=== PATIENT | female | born 1970 | race Caucasian/White ===

== ENCOUNTER → 2016-09-29 | Outpatient (CLI) | payer BC ==
--- NOTE | 2016-09-29 11:53 | ECHOF ---
Referral Reason:R07.9 chest pain R00.2 palpitations MEASUREMENTS -------- HEIGHT: 165.1 cm WEIGHT: 66.2 kg BP: 110/60 RVIDd: 2.3 cm (< 3.3) IVSd: 0.8 cm (0.6 - 1.1) LVIDd: 4.2 cm (3.9 - 5.3) LVPWd: 1.0 cm (0.6 - 1.1) IVSs: 1.1 cm LVIDs: 2.4 cm LVPWs: 1.0 cm LA Diam: 2.8 cm (2.7 - 3.8) Ao Diam: 3.0 cm (2.0 - 3.7) AV Cusp: 2.0 cm (1.5 - 2.6) LA Diam: 2.9 cm (2.7 - 3.8) MV EXCURSION: 23.991 mm (> 18.000) MV EF SLOPE: 104 mm/s (70 - 150) EPSS: 0.2 cm MV E Ramin: 0.66 m/s MV DecT: 218 ms MV A Ramin: 0.92 m/s MV E/A Ratio: 0.71 RAP: 5.00 mmHg RVSP: 18.40 mmHg FINDINGS -------- Sinus rhythm. This was a technically good study. LV size, wall thickness and systolic function are normal, with an EF greater than 55%. The right ventricle is normal in size. The left atrial size is normal. The right atrial size is normal. The aortic valve is trileaflet, and appears structurally normal. No aortic stenosis or regurgitation. Mild mitral annular calcification present. Mild mitral regurgitation is present. Mild tricuspid regurgitation present. There is no evidence of pulmonary hypertension. The right ventricular systolic pressure, as measured by Doppler, is 18.40mmHg. There is no pulmonic regurgitation present. The aortic root size is normal. There is no pericardial effusion. CONCLUSIONS -------- 1. LV size, wall thickness and systolic function are normal, with an EF greater than 55%. 2. Mild mitral annular calcification present. 3. Mild mitral regurgitation is present. 4. Mild tricuspid regurgitation present. 5. There is no evidence of pulmonary hypertension. 6. The right ventricular systolic pressure, as measured by Doppler, is 18.40mmHg. OPTICAL DISPENSER: Sarah Mejia RDCS
--- NOTE | 2016-10-01 11:06 | EST ---
DATE OF SERVICE: 09/29/2016 AGE: 46Y SEX: F HT: 65" WT: 146 lbs. Protocol Mitchell: X Other: Stress Stage: IV Dur. of Exercise: 10:00 *Heart Rate Blood Pressure *Rest: 119 Rest: 142/49 * *Max. Achieved: 181 Maximum BP: 211/50 85% PMHR: 148 100% PMHR: 174 *METS: 11.0 INDICATIONS: Chest pain, palpitations. MEDICATIONS: [place]. Baseline EKG shows sinus rhythm, normal axis, normal intervals. Patient exercised on Mitchell protocol for a total of 10 minutes achieving 11 METs, 100% of predicted maximum heart rate without chest pain or diagnostic ST segment depression. CONCLUSION: 1. Excellent exercise tolerance. 2. Negative stress test by EKG criteria.
== END | disposition home or self-care (01) ==
LOC: RADNMMAIN 10:18
PROVIDERS: ATTEND Family Medicine
DX: R07.9 Chest pain, unspecified (principal); R00.2 Palpitations
CPT/HCPCS: 93017; 93225; 93226; 93306

== ENCOUNTER → 2016-10-15 | Outpatient (CLI) | payer BC ==
--- NOTE | 2016-10-15 17:55 | XR ---
EXAMINATION TYPE: XR chest 2V DATE OF EXAM: 10/15/2016 5:33 PM COMPARISON: NONE HISTORY: Chest pain TECHNIQUE: Frontal and lateral views of the chest are obtained. FINDINGS: Heart and mediastinum are normal. Lungs are clear. Diaphragm is normal. There is a mild th oracic kyphotic curvature. I see no compression fracture. There is no pleural effusion. IMPRESSION: No active cardiopulmonary disease.
== END ==
LOC: RADXRMAIN 17:23
PROVIDERS: ATTEND Family Medicine
DX: R07.9 Chest pain, unspecified (principal)
CPT/HCPCS: 71020

== ENCOUNTER → 2016-12-03 | Outpatient (CLI) | payer BC ==
--- NOTE | 2016-12-04 15:49 | MM ---
Reason for exam: screening (asymptomatic). Last mammogram was performed 6 months ago. History: Patient is postmenopausal. Taking hormonal contraceptives for 2 years. Physical Findings: A clinical breast exam by your physician is recommended on an annual basis and results should be correlated with mammographic findings. MG 3D Screening Mammo W/Cad Bilateral CC and MLO view(s) were taken. Prior study comparison: May 21, 2016, left breast MG diagnostic mammo LT w CAD. October 29, 2015, bilateral MG 3d screening mammo w/cad. The breast tissue is heterogeneously dense. This may lower the sensitivity of mammography. No significant changes when compared with prior studies. ASSESSMENT: Benign, BI-RAD 2 RECOMMENDATION: Routine screening mammogram of both breasts in 1 year.
== END | disposition home or self-care (01) ==
LOC: RADMAMWWP 16:24
PROVIDERS: ATTEND Obstetrics & Gynecology
DX: Z12.31 Encounter for screening mammogram for malignant neoplasm of breast (principal)
CPT/HCPCS: 77063; G0202

== ENCOUNTER → 2017-02-23 | Outpatient (CLI) | payer BC ==
--- NOTE | 2017-02-23 15:32 | BD ---
EXAMINATION TYPE: MG DEXA axial skeleton. DATE OF EXAM: 02/23/2017 COMPARISON: NONE CLINICAL HISTORY: osteoporosis Height: 5'5 Weight: 140 FRAX RISK QUESTIONS: Alcohol (3 or more units per day): no Family History (Parent hip fracture): no Glucocorticoids (More than 3mos): no (Ex: prednisone, prednisolone, methylprednisolone, dexamethasone, and hydrocortisone). History of Fracture in Adulthood: no Secondary Osteoporosis: 1. Type 1 Diabetes: no 2. Hyperthyroidism: no 3. Menopause before 45: yes 4. Malnutrition: no 5. Chronic liver disease: no Rheumatoid Arthritis: no Current Tobacco Use: no RISK FACTORS HISTORY OF: Family History of Osteoporosis: Diet low in dairy products/other sources of calcium: Postmenopausal woman: Take estrogen and/or progesterone medications: How lon years MEDICATIONS: Additional Medications: Claritin, flonase , Additional History: osteoporosis EXAM MEASUREMENTS: Bone mineral densitometry was performed using the [employer] System. Bone mineral density as measured about the Lumbar spine is: ----- L1-L4(G/cm2): 0.916 T Score Values are as follows: ----- L2: -1.9 ----- L3: -2.1 ----- L4: -3.1 ----- L1-L4: -2.2 Bone mineral density about the R hip (g/cm2): 0.993 Bone mineral density about the L hip (g/cm2): 0.950 T Score values are as follows: -----R Neck: -0.3 -----L Neck: -0.6 -----R Total: 0.0 -----L Total: 0.3 IMPRESSION: Osteoporosis (T Score less than -2.5) as noted by T Score values at the: L4 There is increased fracture risk and therapy is usually indicated based on age. Re-Screen 1-2 years. NOTE: T-SCORE=SD OF THE YOUNG ADULT MEAN.
== END | disposition home or self-care (01) ==
LOC: RADBDWWP 14:52
PROVIDERS: ATTEND Family Medicine
DX: M81.0 Age-related osteoporosis without current pathological fracture (principal)
CPT/HCPCS: 77080

== ENCOUNTER → 2017-05-18 | Outpatient (CLI) | payer BC ==
--- NOTE | 2017-05-19 07:38 | USB ---
Reason for exam: clinical finding. History: Patient is postmenopausal. Taking hormonal contraceptives for 2 years. Indicated problem(s): pain in the right breast. Physical Findings: Nurse did not find any significant physical abnormalities on exam. US Breast RT Technologist: Emily Nowak Right breast ultrasound includes all four quadrants, the retroareolar region and axilla. Finding demonstrates no cystic or solid lesion seen. These results were verbally communicated with the patient and result sheet given to the patient on 05/18/17. ASSESSMENT: Negative, BI-RAD 1 RECOMMENDATION: Return to routine screening mammogram schedule for both breasts. Back on schedule. Manage patient on a clinical basis.
== END | disposition home or self-care (01) ==
LOC: RADUSWWP 14:42
PROVIDERS: ATTEND Obstetrics & Gynecology
DX: N64.4 Mastodynia (principal)

== ENCOUNTER 2018-05-16 13:40 | Emergency (ER) | payer OTHER ==
[2018-05-16] MEDS ORDERED: IBUPROFEN 600 MG TAB PO STA (14:01)
--- NOTE | 2018-05-16 14:54 | ED ---
General Adult HPI - General Chief complaint: Fall Stated complaint: fall Time Seen by Provider: 05/16/18 13:52 Source: patient, RN notes reviewed, old records reviewed Mode of arrival: ambulatory Limitations: no limitations - History of Present Illness Initial comments: 47-year-old female presents with right arm pain and tailbone pain status post fall. She was at work, cleaning up water spill, fell on her tailbone. She states that pain is significantly worse with sitting. She is also noted some bruising and pain in her right upper arm associated with the fall. There is no head or neck trauma. Denies loss consciousness. Patient is otherwise healthy with no complaints. She does report some mild low back pain but her pain is predominantly in her tailbone. No shooting pain in the lower extremities. No pain with ambulation. - Related Data Home Medications Medication Instructions Recorded Confirmed Loratadine [Claritin] 10 mg PO DAILY 05/16/18 05/16/18 Previous Rx's Medication Instructions Recorded Ibuprofen [Motrin] 600 mg PO Q8HR PRN #24 tab 05/16/18 Allergies Allergy/AdvReac Type Severity Reaction Status Date / Time No Known Allergies Allergy Verified 05/16/18 14:01 Review of Systems ROS Statement: Those systems with pertinent positive or pertinent negative responses have been documented in the HPI. ROS Other: All systems not noted in ROS Statement are negative. Past Medical History Past Medical History: No Reported History History of Any Multi-Drug Resistant Organisms: None Reported Past Surgical History: Hysterectomy Past Psychological History: No Psychological Hx Reported Smoking Status: Never smoker Past Alcohol Use History: None Reported Past Drug Use History: None Reported General Exam Limitations: no limitations General appearance: alert, in no apparent distress Head exam: Present: atraumatic, normocephalic Eye exam: Present: normal appearance, PERRL, EOMI ENT exam: Present: normal exam, normal oropharynx Neck exam: Present: normal inspection. Absent: tenderness, meningismus Respiratory exam: Present: normal lung sounds bilaterally. Absent: respiratory distress, wheezes Cardiovascular Exam: Present: regular rate, normal rhythm GI/Abdominal exam: Present: soft. Absent: distended, tenderness Extremities exam: Present: tenderness (Tenderness over the mid humerus with some ecchymosis, normal range of motion at the elbow, normal range of motion at the shoulder, normal back end developer strength, 2+ radial pulse.) Back exam: Present: normal inspection, tenderness (Mild paraspinal lumbar tenderness, tenderness over the sacrum.) Neurological exam: Present: alert, oriented X3, CN II-XII intact. Absent: motor sensory deficit Psychiatric exam: Present: normal affect, normal mood Skin exam: Present: warm, dry, intact. Absent: cyanosis, diaphoretic Course Vital Signs 05/16/18 13:47 Temperature 98 F Pulse Rate 77 Respiratory 16 Rate Blood Pressure 122/77 O2 Sat by Pulse 100 Oximetry Medical Decision Making - Medical Decision Making 47-year-old female presents status post fall with right arm pain and pain over her tailbone. X-rays obtained of the right humerus which is negative for fracture, x-rays of the sacrum and coccyx is negative for fracture x-ray of lumbar spine negative for fracture or dislocation. Patient given Motrin, reevaluation she is feeling somewhat better. She will follow-up with primary care physician. Take anti-inflammatories for pain. Disposition Clinical Impression: Tailbone injury Disposition: HOME SELF-CARE Condition: Good Instructions: Contusion in Adults (ED) Prescriptions: Ibuprofen [Motrin] 600 mg PO Q8HR PRN #24 tab PRN Reason: Pain Is patient prescribed a controlled substance at d/c from ED?: No Referrals: Feliberto Dukes DO [Primary Care Provider] - 1-2 days Time of Disposition: 15:13
--- NOTE | 2018-05-16 15:04 | XR ---
EXAMINATION TYPE: XR humerus RT DATE OF EXAM: 05/16/2018 CLINICAL HISTORY: pain COMPARISON: NONE TECHNIQUE: Frontal and lateral images of the right humerus are obtained. FINDINGS: There is no acute fracture/dislocation evident. The joint spaces appear within normal limi ts. The overlying soft tissue appears unremarkable. IMPRESSION: There is no acute fracture or dislocation.ICD 10 NO FRACTURE, INITIAL EVALUATION
--- NOTE | 2018-05-16 15:07 | XR ---
EXAMINATION TYPE: XR lumbar spine 2 or 3V DATE OF EXAM: 05/16/2018 CLINICAL HISTORY: pain TECHNIQUE: Three views of the lumbar spine are submitted. COMPARISON: None. FINDINGS: There are 5 lumbar type vertebral bodies identified. The lumbar spine shows satisfactory alignment w ithout evidence of acute fracture or dislocation. Vertebral body heights are within normal limits. Mild scattered degenerative disc space narrowing. The overlying soft tissue appears unremarkable. IMPRESSION: No acute fracture or dislocation is seen in the lumbar spine. ICD 10 NO FRACTURE, INITIAL EVALUATION
--- NOTE | 2018-05-16 15:07 | XR ---
EXAMINATION TYPE: XR sacrum coccyx DATE OF EXAM: 05/16/2018 CLINICAL HISTORY: pain TECHNIQUE: Three views of the sacrum and coccyx are submitted. COMPARISON: None Sacral alae appear symmetric. No evidence for fracture or bony lesion. Sacroiliac joints are within normal limits. Visualized coccygeal segments are free of fracture or lesion. IMPRESSION: Normal study
[2018-05-16 15:26] VITALS: BP 117/78; PULSE 92; RESP 18; TEMP 98.5
== END 2018-05-16 15:20 | disposition home or self-care (01) ==
LOC: EC 13:40
DX: S39.92XA Unspecified injury of lower back, initial encounter (principal); S40.021A Contusion of right upper arm, initial encounter; Z90.710 Acquired absence of both cervix and uterus; Z79.899 Other long term (current) drug therapy; W01.0XXA Fall on same level from slipping, tripping and stumbling without subsequent striking against object, initial encounter; Y92.69 Other specified industrial and construction area as the place of occurrence of the external cause; Y99.0 Civilian activity done for income or pay
CPT/HCPCS: 72100; 72220; 99284

== ENCOUNTER → 2018-05-31 | Outpatient (CLI) | payer OTHER ==
--- NOTE | 2018-06-01 10:55 | MM ---
Reason for exam: screening (asymptomatic). Last mammogram was performed 1 year and 6 months ago. History: Patient is postmenopausal. Took hormonal contraceptives for 2 years. Physical Findings: A clinical breast exam by your physician is recommended on an annual basis and results should be correlated with mammographic findings. MG 3D Screening Mammo W/Cad Bilateral CC and MLO view(s) were taken. Prior study comparison: December 03, 2016, bilateral MG 3d screening mammo w/cad. May 21, 2016, left breast MG diagnostic mammo LT w CAD. The breast tissue is heterogeneously dense. This may lower the sensitivity of mammography. No suspicious calcifications are seen. Focal asymmetry central left breast 5.2cm from nipple. This finding is changed when compared with previous exams. ASSESSMENT: Incomplete: need additional imaging evaluation, BI-RAD 0 RECOMMENDATION: Special view mammogram of the left breast. If lesion persists on supplemental views, image directed ultrasound is recommended. [facility] will attempt to contact patient to return for supplemental views and ultrasound if indicated.
== END | disposition home or self-care (01) ==
LOC: RADMAMWWP 15:58
PROVIDERS: ATTEND Obstetrics & Gynecology
DX: Z12.31 Encounter for screening mammogram for malignant neoplasm of breast (principal)
CPT/HCPCS: 77063; 77067

== ENCOUNTER → 2018-06-07 | Outpatient (CLI) | payer OTHER ==
--- NOTE | 2018-06-07 11:21 | MM ---
Reason for exam: additional evaluation requested from abnormal screening. Last mammogram was performed less than 1 month ago. History: Patient is postmenopausal. Took hormonal contraceptives for 2 years. Physical Findings: Nurse did not find any significant physical abnormalities on exam. MG 3D Work Up W/Cad LT Spot compression CC, spot compression MLO, and LM view(s) were taken of the left breast. Prior study comparison: May 31, 2018, bilateral MG 3d screening mammo w/cad. December 03, 2016, bilateral MG 3d screening mammo w/cad. The breast tissue is heterogeneously dense. This may lower the sensitivity of mammography. No significant new findings when compared with previous films. These results were verbally communicated with the patient and result sheet given to the patient on 06/07/18. ASSESSMENT: Incomplete: need additional imaging evaluation, BI-RAD 0 RECOMMENDATION: Ultrasound of the left breast.
--- NOTE | 2018-06-07 11:22 | USB ---
Reason for exam: additional evaluation requested from abnormal screening. History: Patient is postmenopausal. Took hormonal contraceptives for 2 years. US Breast Workup LT Left complete breast ultrasound includes all four quadrants, the retroareolar region and axilla. Finding demonstrates a 0.4 x 0.3 x 0.3cm lesion too small to characterize at 8 o'clock and a 0.4 x 0.3 x 0.3cm lesion too small to characterize at the nipple. These results were verbally communicated with the patient and result sheet given to the patient on 06/07/18. ASSESSMENT: Probably benign, BI-RAD 3 RECOMMENDATION: Follow-up diagnostic mammogram and ultrasound of the left breast in 6 months.
== END | disposition home or self-care (01) ==
LOC: RADMAMWWP 08:21
PROVIDERS: ATTEND Obstetrics & Gynecology
DX: R92.8 Other abnormal and inconclusive findings on diagnostic imaging of breast (principal)
CPT/HCPCS: 77065; 76641; G0279; 77061

== ENCOUNTER → 2019-03-09 | Outpatient (CLI) | payer OTHER ==
--- NOTE | 2019-03-09 11:37 | MM ---
Reason for exam: follow-up at short interval from prior study. Last mammogram was performed 9 months ago. History: Patient is postmenopausal. Took hormonal contraceptives for 2 years. Physical Findings: Nurse Summary: less than 0.5cm nodule in the left breast at 12 o'clock (nurse kp). MG 3D Diag Mammo W/Cad LT Spot compression CC, LM, MLO, and CC view(s) were taken of the left breast. Prior study comparison: June 07, 2018, left breast MG 3d work up w/cad LT. May 31, 2018, bilateral MG 3d screening mammo w/cad. The breast tissue is heterogeneously dense. This may lower the sensitivity of mammography. Left lateral distortion on CC 33/77 located 5cm from nipple. No definitive correlate on MLO as this is very small. Ultrasound is being performed as already ordered on the left on ultrasound only a retroareolar cyst is seen, benign. Spot CC distortion persists, 3D biopsy recommended. These results were verbally communicated with the patient and result sheet given to the patient on 03/09/19. ASSESSMENT: Suspicious, BI-RAD 4 RECOMMENDATION: Stereotactic core biopsy of the left breast. Called Dr. Way with mammographic findings and has scheduled an appointment for the patient for 03/15/19 at 10:[address] Alfredo. PRELIMINARY REPORT CALLED AND FAXED TO DR. ALFREDO ON 03/09/19.
--- NOTE | 2019-03-09 11:39 | USB ---
Reason for exam: follow-up at short interval from prior study. History: Patient is postmenopausal. Took hormonal contraceptives for 2 years. US Breast LT Left complete breast ultrasound includes all four quadrants, the retroareolar region and axilla. Finding demonstrates a 0.4 x 0.4 x 0.3cm cystic cluster at 12 o'clock posterior nipple, benign. No sonographic correlate for the lateral distortion. 3D biopsy recommended. These results were verbally communicated with the patient and result sheet given to the patient on 03/09/19. ASSESSMENT: Suspicious, BI-RAD 4 RECOMMENDATION: Stereotactic core biopsy of the left breast. Called Dr. Way with mammographic findings and has scheduled an appointment for the patient for 03/15/19 at 10:[address] Alfredo. PRELIMINARY REPORT CALLED AND FAXED TO DR. ALFREDO ON 03/09/19.
== END | disposition home or self-care (01) ==
LOC: RADMAMWWP 08:20
PROVIDERS: ATTEND Obstetrics & Gynecology
DX: R92.2 Inconclusive mammogram (principal)
CPT/HCPCS: 77065; 76641; G0279; 77061

== ENCOUNTER → 2019-06-21 | Outpatient (CLI) | payer OTHER ==
--- NOTE | 2019-06-21 09:01 | BD ---
EXAMINATION TYPE: Axial Bone Density DATE OF EXAM: 06/21/2019 COMPARISON: 2017 CLINICAL HISTORY: osteoporosis Height: 5'5 Weight: 150 FRAX RISK QUESTIONS: Secondary Osteoporosis: RISK FACTORS HISTORY OF: Postmenopausal woman: complete hysterectomy 2013 MEDICATIONS: Additional Medications: Lipitor Additional History: EXAM MEASUREMENTS: Bone mineral densitometry was performed using the [employer] System. Bone mineral density as measured about the Lumbar spine is: ----- L1-L4(G/cm2): 0.837 T Score Values are as follows: ----- L2: -2.8 ----- L3: -2.8 ----- L4: -3.7 ----- L1-L4: -2.9 Bone mineral density has: Decreased -9.4% since study of: 02/23/2017 Bone mineral density about the R hip (g/cm2): 0.927 Bone mineral density about the L hip (g/cm2): 0.934 T Score values are as follows: -----R Neck: -0.7 -----L Neck: -0.8 -----R Total: -0.1 -----L Total: -0.5 Bone mineral density has: Decreased -3.6% since study of: 02/23/2017 IMPRESSION: Osteoporosis (T Score less than -2.5) remains present in the low back with progression from prior. There remains increased fracture risk and therapy is usually indicated based on age. Re-Screen 1-2 years. NOTE: T-SCORE=SD OF THE YOUNG ADULT MEAN.
--- NOTE | 2019-06-21 09:17 | XR ---
EXAMINATION TYPE: XR chest 2V DATE OF EXAM: 06/21/2019 COMPARISON: Prior chest x-ray October 15, 2016. HISTORY: Left arm and chest pain. TECHNIQUE: Frontal and lateral views of the chest are obtained. FINDINGS: There is no focal air space opacity, pleural effusion, or pneumothorax seen. The cardiac silhouette size is within normal limits. Stable slight scoliotic curvature. IMPRESSION: No acute cardiopulmonary process. No significant change from prior.
== END | disposition home or self-care (01) ==
LOC: RADBDWWP 08:27
PROVIDERS: ATTEND Family Medicine
DX: M81.0 Age-related osteoporosis without current pathological fracture (principal); R07.89 Other chest pain
CPT/HCPCS: 71046; 77080

== ENCOUNTER → 2019-07-07 | Outpatient (CLI) | payer OTHER ==
--- NOTE | 2019-07-08 11:01 | ECHOF ---
Referral Reason:R50.9 Fever, R07.9 Chest Pain MEASUREMENTS -------- HEIGHT: 165.1 cm WEIGHT: 68.0 kg BP: RVIDd: 3.3 cm (< 3.3) IVSd: 1.0 cm (0.6 - 1.1) LVIDd: 3.8 cm (3.9 - 5.3) LVPWd: 1.1 cm (0.6 - 1.1) IVSs: 1.4 cm LVIDs: 2.5 cm LVPWs: 1.5 cm LAESV Index (A-L): 30.72 ml/m Ao Diam: 2.8 cm (2.0 - 3.7) AV Cusp: 1.4 cm (1.5 - 2.6) LA Diam: 3.2 cm (2.7 - 3.8) MV EXCURSION: 17.007 mm (> 18.000) MV EF SLOPE: 166 mm/s (70 - 150) EPSS: 0.3 cm MV E Ramin: 0.98 m/s MV DecT: 135 ms MV A Ramin: 0.54 m/s MV E/A Ratio: 1.81 RAP: 5.00 mmHg RVSP: 17.49 mmHg FINDINGS -------- Sinus rhythm. This was a technically adequate study. The left ventricular size is normal. There is borderline concentric left ventricular hypertrophy. Overall left ventricular systolic function is normal with, an EF between 55 - 60 %. The diastolic filling pattern is normal for the age of the patient 9.17. The right ventricle is normal in size. LA is midly dilated 29-33ml/m2. The right atrial size is normal. Interatrial and interventricular septum intact. The aortic valve is trileaflet and appears structurally normal. There is no evidence of aortic regu rgitation. There is no evidence of aortic stenosis. Mild mitral regurgitation is present. Mild tricuspid regurgitation present. There is no evidence of pulmonary hypertension. The right v entricular systolic pressure, as measured by Doppler, is 17.49mmHg. There is no pulmonic regurgitation present. The aortic root size is normal. Normal inferior vena cava with normal inspiratory collapse consistent with estimated right atrial pre ssure of 5 mmHg. There is no pericardial effusion. CONCLUSIONS -------- 1. Sinus rhythm. 2. This was a technically adequate study. 3. The left ventricular size is normal. 4. There is borderline concentric left ventricular hypertrophy. 5. Overall left ventricular systolic function is normal with, an EF between 55 - 60 %. 6. The diastolic filling pattern is normal for the age of the patient 9.17 7. The right ventricle is normal in size. 8. LA is midly dilated 29-33ml/m2. 9. The right atrial size is normal. 10. Interatrial and interventricular septum intact. 11. The aortic valve is trileaflet and appears structurally normal. 12. There is no evidence of aortic regurgitation. 13. There is no evidence of aortic stenosis. 14. Mild mitral regurgitation is present. 15. Mild tricuspid regurgitation present. 16. There is no evidence of pulmonary hypertension. 17. The right ventricular systolic pressure, as measured by Doppler, is 17.49mmHg. 18. There is no pulmonic regurgitation present. 19. The aortic root size is normal. 20. Normal inferior vena cava with normal inspiratory collapse consistent with estimated right atrial pressure of 5 mmHg. 21. There is no pericardial effusion. [employer] PRODUCTION MACHINE OPERATOR: Domi Herrera RDCS
== END | disposition home or self-care (01) ==
LOC: RADECHMAIN 15:46
PROVIDERS: ATTEND Family Medicine
DX: I08.1 Rheumatic disorders of both mitral and tricuspid valves (principal); R50.9 Fever, unspecified
CPT/HCPCS: 93306

== ENCOUNTER → 2019-09-11 | Outpatient (CLI) | payer OTHER ==
[2019-09-11 16:37] LABS: T4, Free (Free Thyroxine) 1.3 ng/dL (0.80-1.80)
[2019-09-11 16:42] LABS: Cyclic Citrull Pep IgG Unit <0.5 U/mL; Cyclic Citrullinated Pep IgG NEGATIVE (NEGATIVE)
[2019-09-11 16:43] LABS: Anti-DNA, DS unit <1.0 IU/mL; Anti-Smith Ab Interp NEGATIVE (NEGATIVE); DNA Double-Stranded NEGATIVE (NEGATIVE); JO-1 IgG Antibody <0.2 AI; Scleroderma SC-70 Ab <0.2 AI
[2019-09-12 13:11] LABS: ANA Pattern See Footnote
== END | disposition home or self-care (01) ==
LOC: LABWHC1 11:09
PROVIDERS: ATTEND Nurse Practitioner Family
DX: M25.50 Pain in unspecified joint (principal)
CPT/HCPCS: 36415; 82607; 83516; 84439; 84443; 84481; 86038; 86039; 86200; 86225; 86235

== ENCOUNTER → 2020-09-12 | Outpatient (CLI) | payer OTHER ==
--- NOTE | 2020-09-12 17:53 | XR ---
PROCEDURE: XR forearm RT - 2V DATE AND TIME: 09/12/2020 5:35 PM CLINICAL INDICATION: PHH; S56.811A R52 pain injury TECHNIQUE: Department protocol COMPARISON: None FINDINGS: There is no fracture or malalignment. The soft tissues are unremarkable. IMPRESSION: NO ACUTE PROCESS.
--- NOTE | 2020-09-12 17:55 | XR ---
PROCEDURE: XR wrist complete RT - 4V DATE AND TIME: 09/12/2020 5:36 PM CLINICAL INDICATION: PHH; S56.811A R52 injury pain TECHNIQUE: Department protocol, with scaphoid view COMPARISON: None FINDINGS: There is no fracture or malalignment. The soft tissues are unremarkable. IMPRESSION: NO ACUTE PROCESS.
--- NOTE | 2020-09-12 17:56 | XR ---
PROCEDURE: XR hand complete RT - 3V DATE AND TIME: 09/12/2020 5:36 PM CLINICAL INDICATION: PHH; S56.811A R52 pain/injury TECHNIQUE: Department protocol COMPARISON: None FINDINGS: There is no fracture or malalignment. The soft tissues are unremarkable. IMPRESSION: NO ACUTE PROCESS.
== END | disposition home or self-care (01) ==
LOC: RADXRMAIN 17:12
PROVIDERS: ATTEND Emergency Medicine
DX: S56.811A Strain of other muscles, fascia and tendons at forearm level, right arm, initial encounter (principal); S63.501A Unspecified sprain of right wrist, initial encounter; S63.8X1A Sprain of other part of right wrist and hand, initial encounter

== ENCOUNTER → 2020-09-19 | Outpatient (CLI) | payer OTHER ==
--- NOTE | 2020-09-19 16:22 | XR ---
EXAMINATION TYPE: XR wrist complete RT DATE OF EXAM: 09/19/2020 CLINICAL HISTORY: Injury one week ago with pain. TECHNIQUE: Frontal, lateral and oblique images of the right wrist are obtained. 4 view scaphoid vie w is performed. COMPARISON: Prior x-ray 1 week ago. FINDINGS: There is no acute fracture/dislocation evident in the right wrist. No new callus formatio n or periosteal reaction The joint spaces in the right wrist appear stable and within normal limits. The overlying soft tissue remains unremarkable. IMPRESSION: There is no acute fracture or dislocation in right wrist. No significant change from carlos or.
== END | disposition home or self-care (01) ==
LOC: RADXRMAIN 15:53
PROVIDERS: ATTEND Emergency Medicine
DX: S63.501D Unspecified sprain of right wrist, subsequent encounter (principal)

== ENCOUNTER → 2020-12-17 | Outpatient (CLI) | payer OTHER | END | disposition home or self-care (01) | LOC: LABWHC1 15:47 | PROVIDERS: ATTEND Family Medicine | DX: Z20.822 Contact with and (suspected) exposure to COVID-19 (principal) | CPT/HCPCS: U0003; C9803 ==

== ENCOUNTER → 2021-01-29 | Outpatient (CLI) | payer OTHER ==
--- NOTE | 2021-01-29 11:51 | US ---
EXAMINATION TYPE: US thyroid st tissue head/neck DATE OF EXAM: 01/29/2021 COMPARISON: US 2016 CLINICAL HISTORY: E04.1 Thyroid nodule. GLAND SIZE: Right Lobe: 4.7 x 1.5 x 1.7 cm Overall Parenchyma: homogenous Left Lobe: 4.4 x 1.2 x 1.1 cm Overall Parenchyma: homogeneous Isthmus Thickness: 0.2 cm NODULES RIGHT: # of nodules measured on right: 0 LEFT: # of nodules measured on left: 0 ISTHMUS: # of nodules measured in the isthmus: 0 Bilateral neck scanned, no evidence of lymphadenopathy. Nodules seen on previous ultrasound not seen on today's exam. IMPRESSION: No thyroid nodules are seen. Previously seen thyroid nodules are not visualized on today's study.
== END ==
LOC: RADUSWWP 09:36
PROVIDERS: ATTEND Family Medicine
DX: Z03.89 Encounter for observation for other suspected diseases and conditions ruled out (principal)
CPT/HCPCS: 76536

== ENCOUNTER → 2021-04-08 | Outpatient (CLI) | payer OTHER ==
--- NOTE | 2021-04-09 14:48 | MM ---
Reason for exam: screening (asymptomatic). Last mammogram was performed 2 years and 1 month ago. History: Patient is postmenopausal. Took hormonal contraceptives for 2 years. Physical Findings: A clinical breast exam by your physician is recommended on an annual basis and results should be correlated with mammographic findings. MG 3D Screening Mammo W/Cad Bilateral CC, MLO, and XCCL view(s) were taken. Prior study comparison: January 15, 2020, mammogram, performed at [facility]. July 03, 2019, mammogram, performed at [facility]. March 09, 2019, left breast MG 3d diag mammo w/cad [place]. May 31, 2018, mammogram, performed at [facility]. The breast tissue is heterogeneously dense. This may lower the sensitivity of mammography. No significant changes when compared with prior studies. ASSESSMENT: Benign, BI-RAD 2 RECOMMENDATION: Routine screening mammogram of both breasts in 1 year.
== END | disposition home or self-care (01) ==
LOC: RADMAMWWP 16:33
PROVIDERS: ATTEND Obstetrics & Gynecology
DX: Z12.31 Encounter for screening mammogram for malignant neoplasm of breast (principal); Z78.0 Asymptomatic menopausal state; Z79.3 Long term (current) use of hormonal contraceptives
CPT/HCPCS: 77063; 77067

== ENCOUNTER → 2021-10-01 | Outpatient (CLI) | payer OTHER ==
--- NOTE | 2021-10-01 14:24 | XR ---
EXAMINATION TYPE: XR knee complete RT DATE OF EXAM: 10/01/2021 CLINICAL HISTORY: pain TECHNIQUE: Three views of the right knee are obtained. COMPARISON: None. FINDINGS: There is no acute fracture/dislocation. The tri-compartment joint spaces appear within no rmal limits. The overlying soft tissue appears unremarkable. IMPRESSION: There is no acute fracture or dislocation.ICD 10 NO FRACTURE, INITIAL EVALUATION
== END | disposition home or self-care (01) ==
LOC: RADXRMAIN 13:54
PROVIDERS: ATTEND Emergency Medicine
DX: S83.91XA Sprain of unspecified site of right knee, initial encounter (principal); X58.XXXA Exposure to other specified factors, initial encounter

== ENCOUNTER → 2021-10-22 | Outpatient (CLI) | payer OTHER ==
--- NOTE | 2021-10-22 14:52 | BD ---
EXAMINATION TYPE: Axial Bone Density DATE OF EXAM: 10/22/2021 COMPARISON: 06/21/2019 DEXA bone scan. CLINICAL HISTORY: 51 years year old Female. ICD-10 CODE: M81.0 Known osteoporosis Height: 64.5 IN Weight: 147 LBS FRAX RISK QUESTIONS: Secondary Osteoporosis: 3. Menopause before 45: TOTAL HYST AGE 43 Rheumatoid Arthritis: YES RISK FACTORS HISTORY OF: Family History of Osteoporosis: YES AUNT Active: YES Diet low in dairy products/other sources of calcium: YES Postmenopausal woman: TOTAL HYST AGE 43 Take estrogen and/or progesterone medications: NOT NOW How long: AGE 43-46 MEDICATIONS: Additional Medications: VIT D, LIPITOR EXAM MEASUREMENTS: Bone mineral densitometry was performed using the [employer] System. Bone mineral density as measured about the Lumbar spine is: ----- L1-L4(G/cm2): 0.836 T Score Values are as follows: ----- L1: -2.2 ----- L2: -2.8 ----- L3: -2.9 ----- L4: -3.5 ----- L1-L4: -2.9 Bone mineral density has: NO CHANGE 0.0% since study of: 06/21/2019 Bone mineral density about the R hip (g/cm2): 0.888 Bone mineral density about the L hip (g/cm2): 0.878 T Score values are as follows: -----R Neck: -1.1 -----L Neck: -1.1 -----R Total: -0.2 -----L Total: -0.6 Bone mineral density has: Decreased -1.6% since study of: 06/21/2019 FRAX%s: The graph provided illustrates a 5.9 chance for a major osteoporotic fx and a 0.4 chance for the hips probability for fx in 10 years time. IMPRESSION: Osteoporosis (T Score less than -2.5). There is increased fracture risk and therapy is usually indicated based on age. Re-Screen 1-2 years. NOTE: T-SCORE=SD OF THE YOUNG ADULT MEAN.
== END | disposition home or self-care (01) ==
LOC: RADBDWWP 13:58
PROVIDERS: ATTEND Family Medicine
DX: M81.0 Age-related osteoporosis without current pathological fracture (principal)
CPT/HCPCS: 77080

== ENCOUNTER → 2022-04-09 | Outpatient (CLI) | payer OTHER ==
--- NOTE | 2022-04-10 19:24 | MM ---
Reason for Exam: Screening (asymptomatic). Last screening mammogram was performed 12 month(s) ago. Patient History: Menarche at age 13. First Full-Term at age 28. Left ovary removed at age 43. Right ovary removed at age 43. Hysterectomy at age 43. Postmenopausal. Currently using Estrogen, for 2 months. Patient used Hormonal Contraceptives for 2 years. Risk Values: Ninfa 5 year model risk: 1.1%. NCI Lifetime model risk: 9.7%. Prior Study Comparison: 07/03/2019 Screening Mammogram, [place]. 01/15/2020 Screening Mammogram, [place]. 04/08/2021 Bilateral Screening Mammogram, [facility]. Tissue Density: The breast tissue is heterogeneously dense. This may lower the sensitivity of mammography. Findings: Analyzed By CAD. There is no suspicious group of microcalcifications or new suspicious mass in either breast. Overall Assessment: Negative, BI-RAD 1 Management: Screening Mammogram of both breasts in 1 year. A clinical breast exam by your physician is recommended on an annual basis and results should be correlated with mammographic findings. Electronically signed and approved by: Miguel Knight DO
== END | disposition home or self-care (01) ==
LOC: RADMAMWWP 16:14
PROVIDERS: ATTEND Obstetrics & Gynecology
DX: Z12.31 Encounter for screening mammogram for malignant neoplasm of breast (principal); Z78.0 Asymptomatic menopausal state
CPT/HCPCS: 77063; 77067

== ENCOUNTER → 2023-04-12 | Outpatient (CLI) | payer OTHER ==
--- NOTE | 2023-04-13 15:45 | MM ---
Reason for Exam: Screening (asymptomatic). Last screening mammogram was performed 12 month(s) ago. Patient History: Menarche at age 13. First Full-Term at age 28. Left ovary removed at age 43. Right ovary removed at age 43. Hysterectomy at age 43. Postmenopausal. Estrogen for 8 years, 2 months, from age 43 until age 51. Patient used Hormonal Contraceptives for 2 years. Risk Values: Ninfa 5 year model risk: 1.2%. NCI Lifetime model risk: 9.6%. Prior Study Comparison: 01/15/2020 Screening Mammogram, [place]. 04/08/2021 Bilateral Screening Mammogram, [place]. 04/09/2022 Bilateral MG 3D screening mammo w/cad, [facility]. Tissue Density: The breast tissue is extremely dense which could obscure a lesion on mammography. Findings: Analyzed By CAD. Pattern appears symmetrical and stable. No significant interval change is evident. No suspicious groups of microcalcifications, spiculated or lobular masses, architectural distortion or other secondary signs of malignancy are mammographically apparent. Overall Assessment: Benign, BI-RAD 2 Management: Screening Mammogram of both breasts in 1 year. A negative mammogram report should not preclude additional follow up of suspicious palpable abnormalities. Patient should continue monthly self breast exam. A clinical breast exam by your physician is recommended on an annual basis and results should be correlated with mammographic findings. Electronically signed and approved by: Elian Daily D.O. Radiologis
== END | disposition home or self-care (01) ==
LOC: RADMAMWWP 15:46
PROVIDERS: ATTEND Obstetrics & Gynecology
DX: Z12.31 Encounter for screening mammogram for malignant neoplasm of breast (principal); Z78.0 Asymptomatic menopausal state
CPT/HCPCS: 77063; 77067

== ENCOUNTER → 2023-11-11 | Outpatient (CLI) | payer OTHER ==
--- NOTE | 2023-11-11 16:58 | BD ---
EXAMINATION TYPE: Axial Bone Density DATE OF EXAM: 11/11/2023 CLINICAL HISTORY: 53 years old Female. ICD-10 CODE: M81.0 KNOWN OSTEOPOROSIS Height: 64.25 Weight: 154.4 FRAX RISK QUESTIONS: Alcohol (3 or more units per day): no Family History (Parent hip fracture): no Glucocorticoids (More than 3mos): no (Ex: prednisone, prednisolone, methylprednisolone, dexamethasone, and hydrocortisone). History of Fracture in Adulthood: no Secondary Osteoporosis: 1. Type 1 Diabetes: no 2. Hyperthyroidism: no 3. Menopause before 45: age 43 4. Malnutrition: no 5. Chronic liver disease: no Rheumatoid Arthritis: yes Current Tobacco Use: no RISK FACTORS HISTORY OF: Hip Fracture (Right/Left): no Spine Fracture: no History of Wrist Fracture: no Surgery to Spine/Hip(right/left)/Wrist (right/left): no MEDICATIONS: Thyroid Medications: no Osteoporosis Medications: no EXAM MEASUREMENTS: Bone mineral densitometry was performed using the [employer] System. Bone mineral density as measured about the Lumbar spine is: ----- L1-L4(G/cm2): 0.835 T Score Values are as follows: ----- L1: -2.9 ----- L2: -2.9 ----- L3: -2.8 ----- L4: -3.0 ----- L1-L4: -2.9 Z Score Values are as follows: ----- L1: -2.4 ----- L2: -2.5 ----- L3: -2.3 ----- L4: -2.5 ----- L1-L4: -2.4 Bone mineral density has: decreased -0.1 % since study of: 10/22/2021 Bone mineral density about the R hip (g/cm2): 0.979 Bone mineral density about the L hip (g/cm2): 0.911 T Score values are as follows: -----R Neck: -0.9 -----L Neck: -1.1 -----R Total: -0.2 -----L Total: -0.8 Z Score values are as follows: -----R Neck: -0.1 -----L Neck: -0.3 -----R Total: 0.2 -----L Total: -0.3 Bone mineral density has: decreased -1.3 % since study of: 10/22/2021 FRAX%s: The graph provided illustrates a 6.8 % chance for a major osteoporotic fx and a 0.4% chance f or the hips probability for fx in 10 years time. IMPRESSION: Osteoporosis (T Score less than -2.5). There is increased fracture risk and therapy is usually indicated based on age. Re-Screen 1-2 years. NOTE: T-SCORE=SD OF THE YOUNG ADULT MEAN.
== END | disposition home or self-care (01) ==
LOC: RADBDWWP 15:26
PROVIDERS: ATTEND Family Medicine
DX: M81.0 Age-related osteoporosis without current pathological fracture (principal); Z78.0 Asymptomatic menopausal state
CPT/HCPCS: 77080

== ENCOUNTER → 2024-05-24 | Outpatient (CLI) | payer BC ==
--- NOTE | 2024-05-25 14:26 | MM ---
Reason for Exam: Screening (asymptomatic). Last mammogram was performed 1 year(s) and 1 month(s) ago. Patient History: Menarche at age 13. First Full-Term at age 28. Left ovary removed at age 43. Right ovary removed at age 43. Hysterectomy at age 43. Postmenopausal. Estrogen for 8 years, 2 months, from age 43 until age 51. Patient used Hormonal Contraceptives for 2 years. Risk Values: Ninfa 5 year model risk: 1.2%. NCI Lifetime model risk: 9.4%. Prior Study Comparison: 04/08/2021 Bilateral Screening Mammogram, [facility]. 04/09/2022 Bilateral MG 3D screening mammo w/cad, [facility]. 04/12/2023 Bilateral MG 3D screening mammo w/cad, [facility]. Tissue Density: The breasts are heterogeneously dense, which may obscure small masses. Findings: Analyzed By CAD. Possible subtle distortion central posterior right MLO view. This and completely disperses on 3 images and further evaluation is recommended. Possible superimposition shadow as no clear correlate is seen on the CC view. Unchanged medial asymmetric density left cc view. Otherwise, no significant change. Overall Assessment: Incomplete: need additional imaging evaluation, BI-RAD 0 Management: Special View Mammogram of the right breast. Diagnostic Breast Ultrasound of the right breast. . [facility] will attempt to contact patient to return for supplemental views and ultrasound if indicated. [facility], , 05/25/2024 2:23 PM. Electronically signed and approved by: Ivania Su M.D. Radiologist
== END | disposition home or self-care (01) ==
LOC: RADMAMWWP 15:37
PROVIDERS: ATTEND Obstetrics & Gynecology
CPT/HCPCS: 77063; 77067

== ENCOUNTER → 2024-05-30 | Outpatient (CLI) | payer BC ==
--- NOTE | 2024-05-30 10:37 | MM ---
Reason for Exam: Additional evaluation requested from abnormal screening. Last screening mammogram was performed less than 1 month ago. Patient History: Menarche at age 13. First Full-Term at age 28. Left ovary removed at age 43. Right ovary removed at age 43. Hysterectomy at age 43. Postmenopausal. Estrogen for 8 years, 2 months, from age 43 until age 51. Patient used Hormonal Contraceptives for 2 years. Risk Values: Ninfa 5 year model risk: 1.2%. NCI Lifetime model risk: 9.4%. Prior Study Comparison: 05/31/2018 Screening Mammogram, [place]. 07/03/2019 Screening Mammogram, [place]. 04/12/2023 Bilateral MG 3D screening mammo w/cad, [facility]. 05/24/2024 Bilateral MG 3D screening mammo w/cad, [facility]. Tissue Density: Right: The breasts are heterogeneously dense, which may obscure small masses. Findings: Analyzed By CAD. Pattern is stable. Under compression no persistent suspicious distortion is evident. No focal asymmetry is evident. No suspicious groups of microcalcifications, spiculated or lobular masses, architectural distortion or other secondary signs of malignancy are mammographically apparent. Overall Assessment: Benign, BI-RAD 2 Management: Screening Mammogram of both breasts in 1 year. A negative mammogram report should not preclude additional follow up of suspicious palpable abnormalities. Patient should continue monthly self breast exam. A clinical breast exam by your physician is recommended on an annual basis and results should be correlated with mammographic findings. Note on Ninfa scores and lifetime risk: 1. A Ninfa score greater than 3% is considered moderate risk. If this is the case, consider specialist referral to assess eligibility for a risk reducing agent. 2. If overall lifetime risk for the development of breast cancer is 20% or higher, the patient may qualify for future screening with alternating mammogram and breast MRI. [facility], , 05/30/2024 10:34 AM. Electronically signed and approved by: Elian Daily D.O. Radiologis
== END | disposition home or self-care (01) ==
LOC: RADMAMWWP 10:07
PROVIDERS: ATTEND Obstetrics & Gynecology
DX: R92.8 Other abnormal and inconclusive findings on diagnostic imaging of breast (principal); Z78.0 Asymptomatic menopausal state; Z90.722 Acquired absence of ovaries, bilateral; R92.331 Mammographic heterogeneous density, right breast
CPT/HCPCS: 77061; 77065